=== PATIENT | female | born 1965 | race Caucasian/White ===

== ENCOUNTER 2024-07-24 18:42 | Inpatient (IN) ==
[2024-07-24 20:17] LABS: Hematocrit 37.1 % (35-45); Hemoglobin 12.7 g/dL (11.5-14.3); Mean Corpuscular Hemoglobin 30.2 pg (27-33); Mean Corpuscular Hgb Conc 34.2 g/dL (31-36); Mean Corpuscular Volume 88.5 fL (80-97); Mean Platelet Volume 6.8 fL (7.5-11.2); Platelet Count 420 10^3/uL (150-450); Red Blood Count 4.19 10^6/uL (3.63-4.92); Red Cell Distribution Width 13.1 % (12-17); White Blood Count 17.8 10^3/uL (3.8-11.8)
[2024-07-24] MEDS: Lactated Ringers 1000 ml BAG 1,000 ML IV ONE (20:40)
[2024-07-24 20:58] LABS: Albumin 3.6 g/dL (3.2-5.2); Albumin/Globulin Ratio 1.3 (1-3); C Reactive Protein 120.35 mg/L (<8.01); Calcium 9.5 mg/dL (8.6-10.3); Creatinine, Serum 0.67 mg/dL (0.51-0.95); Globulin 2.7 g/dL (2-4); Potassium 3.7 mmol/L (3.5-5.0); Total Bilirubin 0.3 mg/dL (0.2-1.0); Total Protein 6.3 g/dL (6.4-8.9); eGFR CKD-EPI 100.6 (>60)
[2024-07-24 21:27] LABS: ABS Basophils 0.1 10^3/uL (0.0-0.1); ABS Eosinophils 0.1 10^3/uL (0.0-0.5); ABS Lymphocytes 1.4 10^3/uL (1.0-4.8); ABS Neutrophils 14.2 10^3/uL (1.5-7.6); ABS Nucleated RBC 0.01 10^3/ul; Eosinophil % 0.6 %; RBC Morphology Normal (Normal)
[2024-07-24] MEDS: Morphine 4 MG/ML VIAL (1 ml) IV ONE (22:03)
[2024-07-24] MEDS: cefTRIAXone 1 gm/50 mL D5W 1 GM/50 ML BAG IV ONE (22:33)
[2024-07-24 22:35] LABS: Urine Appearance Clear; Urine Bilirubin Negative (Negative); Urine Blood 1+ (Negative); Urine Color Colorless; Urine Glucose Negative (Negative); Urine Ketones 1+ (Negative); Urine Nitrite Negative (Negative); Urine Protein Negative (Negative); Urine Specific Gravity 1.006 (1.002-1.030); Urine Urobilinogen Negative (Negative); Urine pH 6.5 (5.0-8.0)
[2024-07-24 22:50] LABS: Urine Bacteria Absent /HPF (Absent); Urine Red Blood Cell 1+(3-5/hpf) /HPF (0-Trace); Urine Squamous Epithelial Cell Present /HPF (Absent); Urine White Blood Cell Trace(0-5/hpf) /HPF (0-Trace)
[2024-07-24] MEDS: Iohexol 350 (CONTRAST) 500 ML MDV IV ONE (23:15)
[2024-07-24] MEDS: Simethicone SUSP ORALSYR 66.66 MG/ML PO ONE (23:24)
[2024-07-24] MEDS: metroNIDAZOLE IV 500 MG/100ML 500 MG/100 ML BAG IVPB ONE (23:24)
[2024-07-25] MEDS: Heparin 5000 UNITS/ML 1 mL VIAL SUBCUT ONE (03:16)
[2024-07-25] MEDS ORDERED: Ondansetron 4 mg VIAL 2 MG/ML 2 ml VIAL IV PRN (05:44)
[2024-07-25 06:37] LABS: INR 1.16 (0.85-1.14)
[2024-07-25 06:50] LABS: Creatinine, Serum 0.55 mg/dL (0.51-0.95); eGFR CKD-EPI 105.5 (>60)
[2024-07-25] MEDS: metroNIDAZOLE IV 500 MG/100ML 500 MG/100 ML BAG IVPB SCH ×2 (07:32→15:00)
[2024-07-25 07:43] LABS: Hematocrit 35.2 % (35-45); Mean Corpuscular Hemoglobin 29.9 pg (27-33); Mean Corpuscular Volume 87.9 fL (80-97); Mean Platelet Volume 6.9 fL (7.5-11.2); Platelet Count 428 10^3/uL (150-450); Red Cell Distribution Width 12.9 % (12-17); White Blood Count 16.7 10^3/uL (3.8-11.8)
[2024-07-25 08:01] LABS: Albumin 3.4 g/dL (3.2-5.2); Albumin/Globulin Ratio 1.4 (1-3); Calcium 8.9 mg/dL (8.6-10.3); Creatinine, Serum 0.59 mg/dL (0.51-0.95); Globulin 2.5 g/dL (2-4); Potassium 3.5 mmol/L (3.5-5.0); Total Bilirubin 0.3 mg/dL (0.2-1.0); Total Protein 5.9 g/dL (6.4-8.9); eGFR CKD-EPI 103.8 (>60)
[2024-07-25] MEDS: Lactated Ringers 1000 ml BAG 1,000 ML IV SCH ×2 (08:36→14:56)
[2024-07-25 08:41] LABS: ABS Basophils 0.1 10^3/uL (0.0-0.1); ABS Eosinophils 0.1 10^3/uL (0.0-0.5); ABS Lymphocytes 1.3 10^3/uL (1.0-4.8); ABS Monocytes 1.9 10^3/uL (0.0-0.9); ABS Neutrophils 13.3 10^3/uL (1.5-7.6); ABS Nucleated RBC 0.01 10^3/ul; Eosinophil % 0.7 %
[2024-07-25] MEDS: Pantoprazole VIAL 40 MG VIAL IV SCH (10:20)
[2024-07-25] MEDS: Acetaminophen IV 1 GM/100ML 1,000 MG/100 ML BAG IV PRN (10:25)
[2024-07-25] MEDS ORDERED: Morphine 2 MG/ML SYRINGE IV PRN (12:52)
[2024-07-25] MEDS ORDERED: cefTRIAXone 1 gm/50 mL D5W 1 GM/50 ML BAG IV SCH (21:00)
[2024-07-25] MEDS: cefTRIAXone 1 gm/50 mL D5W 1 GM/50 ML BAG IV SCH (21:29)
[2024-07-26 06:52] LABS: Hematocrit 35.2 % (35-45); Hemoglobin 12.1 g/dL (11.5-14.3); Mean Corpuscular Hemoglobin 30.3 pg (27-33); Mean Corpuscular Hgb Conc 34.3 g/dL (31-36); Mean Corpuscular Volume 88.2 fL (80-97); Mean Platelet Volume 6.9 fL (7.5-11.2); Platelet Count 425 10^3/uL (150-450); Red Blood Count 3.99 10^6/uL (3.63-4.92); Red Cell Distribution Width 12.6 % (12-17); White Blood Count 9.4 10^3/uL (3.8-11.8)
[2024-07-26 07:25] LABS: Calcium 8.5 mg/dL (8.6-10.3); Creatinine, Serum 0.58 mg/dL (0.51-0.95); Magnesium 1.8 mg/dL (1.9-2.7); Potassium 3.4 mmol/L (3.5-5.0); eGFR CKD-EPI 104.2 (>60)
[2024-07-26] MEDS: Magnesium Sulfate 2 gm BAG 2 GM/50 ML BAG IVPB ONE (08:38)
[2024-07-26] MEDS: Potassium Chlor 20 meq TAB.ER PO ONE (08:43)
[2024-07-27 07:16] LABS: Hematocrit 35.1 % (35-45); Hemoglobin 12.2 g/dL (11.5-14.3); Mean Corpuscular Hemoglobin 30.5 pg (27-33); Mean Corpuscular Hgb Conc 34.7 g/dL (31-36); Mean Corpuscular Volume 87.8 fL (80-97); Mean Platelet Volume 6.8 fL (7.5-11.2); Platelet Count 427 10^3/uL (150-450); Red Cell Distribution Width 12.4 % (12-17); White Blood Count 7.2 10^3/uL (3.8-11.8)
[2024-07-27 07:27] LABS: Calcium 8.2 mg/dL (8.6-10.3); Creatinine, Serum 0.54 mg/dL (0.51-0.95); Magnesium 1.9 mg/dL (1.9-2.7); Potassium 3.3 mmol/L (3.5-5.0)
[2024-07-27] MEDS: KCL 20 MEQ/100 ML IVPREMIX 20 MEQ/100 ML BAG IV SCH (10:12)
[2024-07-27] MEDS: Potassium Chlor 20 meq TAB.ER PO SCH (13:10)
[2024-07-27] MEDS: Magnesium Sulfate 2 gm BAG 2 GM/50 ML BAG IVPB ONE (17:59)
[2024-07-28 06:47] LABS: Hematocrit 35.6 % (35-45); Hemoglobin 12.4 g/dL (11.5-14.3); Mean Corpuscular Hemoglobin 30.5 pg (27-33); Mean Corpuscular Hgb Conc 34.9 g/dL (31-36); Mean Corpuscular Volume 87.6 fL (80-97); Mean Platelet Volume 6.8 fL (7.5-11.2); Platelet Count 412 10^3/uL (150-450); Red Blood Count 4.06 10^6/uL (3.63-4.92); Red Cell Distribution Width 12.7 % (12-17); White Blood Count 7.3 10^3/uL (3.8-11.8)
[2024-07-28 06:59] LABS: Creatinine, Serum 0.57 mg/dL (0.51-0.95); Potassium 3.4 mmol/L (3.5-5.0); eGFR CKD-EPI 104.6 (>60)
[2024-07-28] MEDS: Potassium Chlor 20 meq TAB.ER PO ONE (12:24)
[2024-07-28 12:28] LABS: CRP High Sensitivity 39.85 mg/L (<2.00)
[2024-07-29 08:30] LABS: Calcium 8.2 mg/dL (8.6-10.3); Creatinine, Serum 0.57 mg/dL (0.51-0.95); Magnesium 1.9 mg/dL (1.9-2.7); Potassium 3.8 mmol/L (3.5-5.0); eGFR CKD-EPI 104.6 (>60)
[2024-07-29] MEDS: Magnesium Sulfate 2 gm BAG 2 GM/50 ML BAG IVPB ONE (11:10)
[2024-07-29] MEDS: Potassium Chlor 20 meq TAB.ER PO ONE (11:10)
[2024-07-30 09:43] VITALS: BP 118/72
== END 2024-07-30 11:30 | disposition home or self-care (01) | DRG 254 ==
LOC: EDHOLD 18:42 → ED 18:42 → SUATTDRO 07-25 01:36 → MED 07-25 12:42 → SUATTDRO 07-27 13:35
PROVIDERS: ADMIT Internal Medicine; ATTEND Internal Medicine